=== PATIENT | female | born 2000 | race African-American/Black ===

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

== ENCOUNTER 2018-03-23 12:48 | Observation (INO) | payer MEDICAID | END 2018-03-23 14:40 | disposition home or self-care (01) | LOC: 8 EST LDRP 12:48 | PROVIDERS: ADMIT Obstetrics & Gynecology; ATTEND Obstetrics & Gynecology | DX: O26.893 Other specified pregnancy related conditions, third trimester (principal); R10.30 Lower abdominal pain, unspecified; M54.5 Low back pain; Z3A.29 29 weeks gestation of pregnancy | CPT/HCPCS: 99281; G0378 ==

== ENCOUNTER 2018-05-07 14:06 | Observation (INO) | payer OTHER ==
[~2018-05-07] VITALS: Ht 175.3 cm; Wt 99.3 kg
== END 2018-05-07 15:45 | disposition home or self-care (01) ==
LOC: 8 EST LDRP 14:06
PROVIDERS: ADMIT Obstetrics & Gynecology; ATTEND Obstetrics & Gynecology
DX: O26.893 Other specified pregnancy related conditions, third trimester (principal); R10.30 Lower abdominal pain, unspecified; Z3A.34 34 weeks gestation of pregnancy
CPT/HCPCS: G0378 ×2; 99281

== ENCOUNTER 2018-05-31 11:27 | Observation (INO) | payer MEDICAID | END 2018-05-31 12:19 | disposition home or self-care (01) | LOC: 8 EST LDRP 11:27 | PROVIDERS: ADMIT Specialist; ATTEND Specialist | DX: O26.893 Other specified pregnancy related conditions, third trimester (principal); R10.2 Pelvic and perineal pain; Z3A.38 38 weeks gestation of pregnancy | CPT/HCPCS: 99281; G0378 ==

== ENCOUNTER 2018-06-13 11:51 | Observation (INO) | payer MEDICAID ==
[~2018-06-13] VITALS: Ht 175.3 cm; Wt 102.1 kg
== END 2018-06-13 13:40 | disposition home or self-care (01) ==
LOC: 8 EST LDRP 11:51
PROVIDERS: ADMIT Specialist; ATTEND Specialist
DX: O62.9 Abnormality of forces of labor, unspecified (principal); Z3A.00 Weeks of gestation of pregnancy not specified
CPT/HCPCS: 99281; G0378

== ENCOUNTER 2018-06-19 17:34 | Inpatient (IN) | payer MEDICAID ==
[~2018-06-19] VITALS: Ht 175.3 cm; Wt 102.1 kg
[2018-06-19 18:53] LABS: CLARITY URINE CLEAR (CLEAR); COLOR URINE YELLOW (YELLOW); KETONES URINE TRACE (NEGATIVE); LEUKOCYTE ESTERASE URINE 2+ (NEGATIVE); NITRITE URINE NEGATIVE (NEGATIVE); OCCULT BLOOD URINE NEGATIVE (NEGATIVE); PROTEIN URINE NEGATIVE (NEGATIVE); SPECIFIC GRAVITY URINE 1.024 (1.005-1.030); UROBILINOGEN URINE 0.2 E.U./dL (0.2-1.0)
[2018-06-19] MEDS ORDERED: METRONIDAZOLE 500 MG PREMIX 2,000 MG in BAG 0 EACH IV SCH (21:15)
[2018-06-19] MEDS ORDERED: ACETAMINOPHEN 500MG TABLET PO PRN (21:15)
[2018-06-19] MEDS ORDERED: LACTATED RINGERS 1,000 ML IV NR (21:15)
[2018-06-19] MEDS ORDERED: ONDANSETRON HCL 4MG/2ML INJ IV PRN (21:15)
[2018-06-19] MEDS ORDERED: METRONIDAZOLE 500MG TABLET PO NR (21:34)
[2018-06-19] MEDS: LACTATED RINGERS 1,000 ML IV SCH (22:21)
[2018-06-19] MEDS ORDERED: ACETAMINOPHEN 325MG TABLET PO PRN (22:30)
[2018-06-20] MEDS: LACTATED RINGERS 1,000 ML IV SCH ×2 (02:28→20:53)
[2018-06-20 08:01] LABS: BASOPHILS % 0.7 % (0.0-2.0); EOSINOPHILS % 1.5 % (0.0-5.0); HEMOGLOBIN. 12.1 g/dL (12.0-16.0); LYMPHOCYTES % 22.6 % (20.0-50.0); MEAN CORPUSCULAR HEMOGLOBIN 30.6 pg (28.0-32.0); MEAN PLATELET VOLUME 8.3 fl (7.4-10.4); MONOCYTES % 8.4 % (2.0-8.0); NEUTROPHILS % 66.8 % (40.0-76.0); PLATELET 240 x1000/uL (130-400); RED BLOOD CELL COUNT 3.95 mill/uL (4.2-5.4)
[2018-06-20] MEDS ORDERED: DEXT 5%/LR + PITOCIN 20UNITS/L 1,000 ML IV SCH (09:08)
[2018-06-20] MEDS ORDERED: METHYLERGONOVINE MALEATE 0.2 MG/ML IM PRN (09:15)
[2018-06-20] MEDS ORDERED: MISOPROSTOL 200MCG TABLET VG PRN (09:15)
[2018-06-20] MEDS ORDERED: LIDOCAINE HCL 1% 20ML VIAL (Pyxis) INJ INFIL PRN (09:15)
[2018-06-20] MEDS ORDERED: NALOXONE HCL 0.4 MG/ML 1ML VIAL IM PRN (09:15)
[2018-06-20] MEDS ORDERED: PENICILLIN G POTASSIUM 5 MMU in DEXT 5% WATER 100 ML IV SCH (10:00)
[2018-06-20] MEDS: MISOPROSTOL 100MCG TABLET VG PRN ×3 (10:38→22:38)
[2018-06-20] MEDS ORDERED: ROPIVACAINE HCL/PF EPIDURAL 200 ML EP SCH (12:30)
[2018-06-20 13:43] LABS: INR 0.9; PARTIAL THROMBOPLASTIN TIME 30.8 sec (23.4-31.0); PROTHROMBIN TIME 9.4 sec (9.6-11.0)
[2018-06-20 13:55] LABS: CHLORIDE 107 mEq/L (98-107)
[2018-06-20 14:21] LABS: HEPATITIS B SURFACE ANTIGEN NEGATIVE
[2018-06-20] MEDS: PENICILLIN G POTASSIUM 2.5 MMU in DEXTROSE 5% WATER 50 ML IV SCH ×3 (15:01→22:37)
[2018-06-20 15:31] LABS: *AMPHETAMINES SCREEN URINE NEGATIVE (NEGATIVE); *BARBITURATES SCREEN URINE NEGATIVE (NEGATIVE); *BENZODIAZEPINES SCREEN URINE NEGATIVE (NEGATIVE); *COCAINE SCREEN URINE NEGATIVE (NEGATIVE); METHADONE URINE SCREEN NEGATIVE (NEGATIVE)
[2018-06-20 15:32] LABS: CANNABINOID URINE SCREEN NEGATIVE (NEGATIVE); OPIATES URINE SCREEN NEGATIVE (NEGATIVE); PHENCYCLIDINE URINE SCREEN NEGATIVE (NEGATIVE)
[2018-06-20] MEDS: BUTORPHANOL TARTRATE 2 MG/ML VIAL IV PRN (19:49)
[2018-06-20] MEDS ORDERED: MISOPROSTOL 100MCG TABLET ONE (22:11)
[2018-06-21] MEDS: BUTORPHANOL TARTRATE 2 MG/ML VIAL IV PRN ×2 (01:57→06:55)
[2018-06-21] MEDS: LACTATED RINGERS 1,000 ML IV SCH ×3 (01:58→12:13)
[2018-06-21] MEDS: PENICILLIN G POTASSIUM 2.5 MMU in DEXTROSE 5% WATER 50 ML IV SCH ×4 (02:45→14:28)
[2018-06-21] MEDS: MISOPROSTOL 100MCG TABLET VG PRN (02:46)
[2018-06-21] MEDS ORDERED: DEXT 5%/LR + PITOCIN 20UNITS/L 1,000 ML IV SCH ×2 (06:26→21:33)
[2018-06-21] MEDS ORDERED: FENTANYL CITRATE/PF 50MCG/ML 2ML VIAL ONE (12:31)
[2018-06-21] MEDS ORDERED: PENICILLIN G POTASSIUM 2.5 MMU in DEXTROSE 5% WATER 50 ML IV SCH (19:30)
[2018-06-21] MEDS ORDERED: DEXT 5%/LR + PITOCIN 20UNITS/L 1,000 ML IV ONE (20:40)
[2018-06-21] MEDS ORDERED: IBUPROFEN 400MG TABLET PO PRN (21:45)
[2018-06-21] MEDS ORDERED: LANOLIN OINT 0.25 GM TUBE TOP PRN (21:45)
[2018-06-21] MEDS ORDERED: RHO(D) IMMUNE GLOBULIN 300 MCG/SYR IM PRN (21:45)
[2018-06-21 23:45] VITALS: BP 122/68
[2018-06-22 00:30] VITALS: BP 118/62
[2018-06-22] MEDS: IBUPROFEN 800MG TABLET PO PRN ×3 (00:30→20:05)
[2018-06-22 01:30] VITALS: BP 114/64
[2018-06-22 04:50] VITALS: BP 116/68
[2018-06-22 06:48] LABS: BASOPHILS % 0.3 % (0.0-2.0); EOSINOPHILS % 0.5 % (0.0-5.0); HEMATOCRIT. 30.7 % (36.0-48.0); HEMOGLOBIN. 10.6 g/dL (12.0-16.0); LYMPHOCYTES % 15.3 % (20.0-50.0); MEAN CORPUSCULAR HEMOGLOBIN 31.2 pg (28.0-32.0); MEAN CORPUSCULAR VOLUME 90.6 fL (81.0-99.0); MEAN PLATELET VOLUME 8.5 fl (7.4-10.4); MONOCYTES % 9.3 % (2.0-8.0); NEUTROPHILS % 74.6 % (40.0-76.0); PLATELET 219 x1000/uL (130-400); RED BLOOD CELL COUNT 3.39 mill/uL (4.2-5.4)
[2018-06-22 08:00] VITALS: BP 105/58
[2018-06-22] MEDS: PRENATAL VIT/FE FUMARATE/FA TABLET PO SCH (10:16)
[2018-06-22 16:14] VITALS: BP 107/47
[2018-06-22 19:45] VITALS: BP 105/50
[2018-06-22] MEDS ORDERED: DOCUSATE SODIUM 100MG CAPSULE PO SCH (21:00)
[2018-06-23 05:05] VITALS: BP 104/55
[2018-06-23] MEDS: PRENATAL VIT/FE FUMARATE/FA TABLET PO SCH (09:00)
[2018-06-23 09:06] VITALS: BP 112/61
== END 2018-06-23 11:15 | disposition home or self-care (01) | DRG 560 ==
LOC: 8 EST LDRP 17:34 → OBSVTOIN 17:34 → 8EST 06-21 22:05
PROVIDERS: ADMIT Obstetrics & Gynecology; ATTEND Obstetrics & Gynecology
PROC: 10E0XZZ Delivery of Products of Conception, External Approach (ICD-10-PCS; principal; 2018-06-19)
PROC: 10907ZC Drainage of Amniotic Fluid, Therapeutic from Products of Conception, Via Natural or Artificial Opening (ICD-10-PCS; 2018-06-19)
PROC: 3E0R3BZ Introduction of Anesthetic Agent into Spinal Canal, Percutaneous Approach (ICD-10-PCS; 2018-06-19)
PROC: 00HU33Z Insertion of Infusion Device into Spinal Canal, Percutaneous Approach (ICD-10-PCS; 2018-06-19)
PROC: 0HQ9XZZ Repair Perineum Skin, External Approach (ICD-10-PCS; 2018-06-19)
DX: O48.0 Post-term pregnancy (principal); O41.03X0 Oligohydramnios, third trimester, not applicable or unspecified; D62 Acute posthemorrhagic anemia; O98.32 Other infections with a predominantly sexual mode of transmission complicating childbirth; A59.9 Trichomoniasis, unspecified; J45.909 Unspecified asthma, uncomplicated; O69.81X0 Labor and delivery complicated by cord around neck, without compression, not applicable or unspecified; O70.9 Perineal laceration during delivery, unspecified; O99.02 Anemia complicating childbirth; O99.52 Diseases of the respiratory system complicating childbirth; Z37.0 Single live birth; Z3A.40 40 weeks gestation of pregnancy
CPT/HCPCS: 36415; 76805; 76815; 76818; 80305; 86592; 86703; 86762; 86850; 86900; 87340; 99281; G0378; J0595; J2405; J2540; J2590; J2795; J3010; J7060; J7120